=== PATIENT | male | born 1950 | race Caucasian/White ===

== ENCOUNTER 2022-05-27 22:55 | Inpatient (IN) ==
--- NOTE | 2022-05-27 23:20 | Emergency Department Note ---
History of Present Illness General Chief complaint: Vomiting Stated complaint: FEVER/VOMITING/WEAKNESS/LETHARGIC/ALTERED Time Seen by Provider: 05/27/22 22:58 History of Present Illness 72-year-old male presents via EMS reportedly from home, has a history of dementia, reportedly has been ill over the past day. EMS stated that the patient had episodes of vomiting alteration mental status cough. Patient is venkatesh ble to provide any history he is nonverbal. Allergies Allergy/AdvReac Type Severity Reaction Status Date / Time Penicillins Allergy Unknown Verified 05/28/22 00:15 Past Med/Surg History Medical History Dementia Social History Smoking Status: Unknown if ever smoked Feels Safe at Home: Declines to Answer Immunizations: Unable to obtain medical history due to patient's dementia Review of Systems Unobtainable due to cognitive status Physical Exam Vital Signs Vital Signs - 24 hr 05/27/22 23:12 05/28/22 00:11 05/27/22 23:45 Temperature 38.1 C H Temperature Source Rectal Pulse Rate 84 Pulse Rate [Finger] 82 Pulse Rhythm Regular Pulse Rhythm [Finger] Pulse Strength Normal Pulse Strength [Finger] Respiratory Rate 22 19 Respiratory Effort / Characteristics Non-Labored Spontaneous Non-Labored Spontaneous Respiratory Depth Normal Normal Respiratory Pattern Regular Blood Pressure 139/74 Blood Pressure [Left Arm] 87/50 L Blood Pressure Mean 95 Blood Pressure Mean [Left Arm] 62 Pulse Oximetry 94 96 96 Oxygen Delivery Method Nasal Cannula Room Air Nasal Cannula Oxygen Flow Rate 3 3 Sepsis Recent Fever Within 48 Hours Yes Sepsis New/Unexplained Change in Mental Status Yes Sepsis Action Taken by Nursing Physician Notified 05/28/22 00:20 05/28/22 00:31 05/28/22 00:53 Temperature Temperature Source Pulse Rate Pulse Rate [Finger] 79 80 80 Pulse Rhythm Pulse Rhythm [Finger] Regular Pulse Strength Pulse Strength [Finger] Normal Respiratory Rate 16 17 20 Respiratory Effort / Characteristics Non-Labored Spontaneous Respiratory Depth Normal Respiratory Pattern Regular Blood Pressure Blood Pressure [Left Arm] 98/58 L 112/58 L 100/59 L Blood Pressure Mean Blood Pressure Mean [Left Arm] 71 76 72 Pulse Oximetry 97 97 93 Oxygen Delivery Method Room Air Nasal Cannula Nasal Cannula Oxygen Flow Rate 3 3 Sepsis Recent Fever Within 48 Hours Sepsis New/Unexplained Change in Mental Status Sepsis Action Taken by Nursing 05/28/22 01:37 Temperature 37.8 C H Temperature Source Rectal Pulse Rate Pulse Rate [Finger] 86 Pulse Rhythm Pulse Rhythm [Finger] Pulse Strength Pulse Strength [Finger] Respiratory Rate 24 Respiratory Effort / Characteristics Respiratory Depth Respiratory Pattern Blood Pressure Blood Pressure [Left Arm] 108/85 Blood Pressure Mean Blood Pressure Mean [Left Arm] 92 Pulse Oximetry 94 Oxygen Delivery Method Nasal Cannula Oxygen Flow Rate 3 Sepsis Recent Fever Within 48 Hours Sepsis New/Unexplained Change in Mental Status Sepsis Action Taken by Nursing GENERAL: Patient is awake; ill appearing EYES: The conjunctivae are clear. The pupils are round and reactive. EARS, NOSE, MOUTH AND THROAT: The nose is without any evidence of any deformity. Mucous membranes are moist. Tongue is midline. NECK: The neck is nontender and supple. RESPIRATORY: Normal respiratory effort is noted there is no evidence of wheezing rhonchi or rales CARDIOVASCULAR: Regular rate and rhythm noted there no murmurs rubs or gallops normal S1 normal S2. GASTROINTESTINAL: The abdomen is soft. Abdomen is nontender. PELVIS: The Pelvis is stable. No tenderness to palpation is noted. BACK: No midline tenderness or or step-off noted range of motion in flexion extension as well as rotation no signs of muscle spasm noted MUSCULOSKELETAL/EXTREMITIES: There is no evidence of gross deformity full range of motion is noted in the hips and shoulders. SKIN: There is no obvious evidence of any rash. There are no petechiae, pallor or cyanosis noted. Reported right buttocks decub stage 2 per nursing NEUROLOGIC: Patient is awake; nonverbal; does not follow commands Course Reevaluation(s) Reevaluation #1: Patient was evaluated for alteration mental status fever low blood pressure. Patient was given IV fluids, IV Tylenol, patient is COVID-positive, CTs are negative, I suspect that the patient may have sepsis at this time. Time: 01:35 Reevaluation #2: Patient improved after IV fluids Time: 01:35 Consultations Consultation #1: Case was discussed with the [facility]ist Time: :35 Administered Medications Discontinued Medications Acetaminophen (Ofirmev) 1,000 mg in 100 mls @ 400 mls/hr IV NOW STA Stop: 05/27/22 23:52 Last Infusion: 05/28/22 00:53 Dose: 0 mls/hr Documented By: Admin: 05/27/22 23:53 Dose: 400 mls/hr Documented By: MAGGY Sodium Chloride (Nss 1000ml) 1,000 mls @ 999 mls/hr IV .Q1H1M RHINA Stop: 05/28/22 01:15 Last Infusion: 05/28/22 00:52 Dose: 0 mls/hr Documented By: Admin: 05/28/22 00:14 Dose: 999 mls/hr Documented By: MAGGY Critical Care Time Critical Care Time: Yes Total Critical Care Time: 35 I have personally spent greater than 35 minutes of critical care time in the direct management of this patient. This includes bedside care, interpretation of diagnostic studies, and testing, discussion with consultants, patient, and family members, and other required patient management activities. These minutes are in excess of all separately billable procedures. Medical Decision Making Medical Records Attestation: I reviewed the patient's medical records. Home Medications Current Medication List: was personally reviewed by me Laboratory Data Attestation: I reviewed the patient's lab results. Result diagrams: 05/27/22 23:24 05/27/22 23:24 Lab Results 05/27/22 05/27/22 05/27/22 Range/Units 23:24 23:24 23:24 WBC 4.98 (4.8-10.8) K/ul RBC 4.60 L (4.63-6.08) M/uL Hgb 13.7 L (14.0-18.0) g/dl Hct 41.1 (40.1-51.0) % MCV 89.3 (80.0-100.0) fL MCH 29.8 (25.0-34.0) pg MCHC 33.3 (32.0-36.0) g/dL RDW Std Deviation 46.0 (36.4-46.3) fL RDW Coeff of Maurice 14.1 (11.5-14.5) % Plt Count 166 (130-400) K/uL MPV 12.0 (9.4-12.4) fL Immature Gran % (Auto) 0.4 % Neut % (Auto) 78.6 % Lymph % (Auto) 8.8 % Norman % (Auto) 11.8 % Eos % (Auto) 0.0 % Baso % (Auto) 0.4 % Neut # (Auto) 3.91 (1.4-6.5) K/uL Lymph # (Auto) 0.44 L (1.2-3.4) K/uL Norman # (Auto) 0.59 (0.24-0.82) K/uL Eos # (Auto) 0.00 (0-0.50) K/uL Baso # (Auto) 0.02 (0-0.2) K/uL Immature Gran # (Auto) 0.02 (0.00-0.02) K/uL Sodium 135 L (136-145) mmol/L Potassium 4.1 (3.5-5.1) mmol/L Chloride 101 (98-107) mmol/L Carbon Dioxide 26 (21-32) mmol/L Anion Gap 8 (3-11) BUN 25 H (6-23) mg/dl Creatinine 1.17 (0.6-1.4) mg/dl Est Cr Clr Drug Dosing Not Reportable Est GFR ( Amer) 71.3 ml/min Est GFR (Non-Af Amer) 61.5 ml/min BUN/Creatinine Ratio 21.4 H (10-20) Glucose 123 H (70-99(Fasting)) mg/dl Lactate (0.4-2.0) mmol/L Calcium 8.6 (8.5-10.1) mg/dl Magnesium 2.0 (1.7-2.4) mg/dl Total Bilirubin 0.9 (0.2-1.0) mg/dl Direct Bilirubin 0.2 (0-0.2) mg/dl AST 20 (13-39) U/L ALT 14 (7-52) U/L Alkaline Phosphatase 46 (34-104) U/L Troponin I High Sens 6.2 (0-20) pg/ml Total Protein 6.9 (6.0-8.3) gm/dl Albumin 3.8 (3.4-5.0) gm/dl Procalcitonin < 0.05 (0-0.5) ng/ml Urine Color Urine Appearance (Clear) Urine pH (4.5-7.5) Ur Specific [place] (1.000-1.030) Urine Protein (Negative) Urine Glucose (UA) (Negative) Urine Ketones (Negative) Urine Blood (Negative) Urine Nitrite (Negative) Urine Bilirubin (Negative) Urine Urobilinogen (Negative) Ur Leukocyte Esterase (Negative) Urine WBC (Auto) (0-5) /hpf Urine RBC (Auto) (0-4) /hpf U Hyaline Cast (Auto) (0-5) /lpf U Epithel Cells (Auto) (0-5) /lpf Urine Bacteria (Auto) (Negative) Ur Renal Epithelial Cell SARS-CoV-2, RNA, NAAT (NEGATIVE) 05/27/22 05/27/22 05/27/22 Range/Units 23:31 23:35 23:41 WBC (4.8-10.8) K/ul RBC (4.63-6.08) M/uL Hgb (14.0-18.0) g/dl Hct (40.1-51.0) % MCV (80.0-100.0) fL MCH (25.0-34.0) pg MCHC (32.0-36.0) g/dL RDW Std Deviation (36.4-46.3) fL RDW Coeff of Maurice (11.5-14.5) % Plt Count (130-400) K/uL MPV (9.4-12.4) fL Immature Gran % (Auto) % Neut % (Auto) % Lymph % (Auto) % Norman % (Auto) % Eos % (Auto) % Baso % (Auto) % Neut # (Auto) (1.4-6.5) K/uL Lymph # (Auto) (1.2-3.4) K/uL Norman # (Auto) (0.24-0.82) K/uL Eos # (Auto) (0-0.50) K/uL Baso # (Auto) (0-0.2) K/uL Immature Gran # (Auto) (0.00-0.02) K/uL Sodium (136-145) mmol/L Potassium (3.5-5.1) mmol/L Chloride (98-107) mmol/L Carbon Dioxide (21-32) mmol/L Anion Gap (3-11) BUN (6-23) mg/dl Creatinine (0.6-1.4) mg/dl Est Cr Clr Drug Dosing Est GFR ( Amer) ml/min Est GFR (Non-Af Amer) ml/min BUN/Creatinine Ratio (10-20) Glucose (70-99(Fasting)) mg/dl Lactate 2.0 (0.4-2.0) mmol/L Calcium (8.5-10.1) mg/dl Magnesium (1.7-2.4) mg/dl Total Bilirubin (0.2-1.0) mg/dl Direct Bilirubin (0-0.2) mg/dl AST (13-39) U/L ALT (7-52) U/L Alkaline Phosphatase (34-104) U/L Troponin I High Sens (0-20) pg/ml Total Protein (6.0-8.3) gm/dl Albumin (3.4-5.0) gm/dl Procalcitonin (0-0.5) ng/ml Urine Color Dark Yellow Urine Appearance Clear (Clear) Urine pH 5.5 (4.5-7.5) Ur Specific [place] 1.023 (1.000-1.030) Urine Protein Trace H (Negative) Urine Glucose (UA) Negative (Negative) Urine Ketones 1+ H (Negative) Urine Blood 1+ H (Negative) Urine Nitrite Negative (Negative) Urine Bilirubin Negative (Negative) Urine Urobilinogen Negative (Negative) Ur Leukocyte Esterase Negative (Negative) Urine WBC (Auto) 1-5 (0-5) /hpf Urine RBC (Auto) 0-4 (0-4) /hpf U Hyaline Cast (Auto) 1-5 (0-5) /lpf U Epithel Cells (Auto) >30 H (0-5) /lpf Urine Bacteria (Auto) Negative (Negative) Ur Renal Epithelial Cell Not Reportable SARS-CoV-2, RNA, NAAT POSITIVE A* (NEGATIVE) Imaging Data Attestation: I personally reviewed and interpreted this imaging study as follows: My Impression: Chest x-ray interpreted by me poor inspiratory effort is dilation of the small intestine no obvious free air Radiologist's Impression: CT of the brain no intracranial hemorrhage no evidence of acute territorial infarction, CT of the abdomen pelvis states gallstones dilated fluid-filled stomach and large prostate moderate compression fracture deformity of L4 per radiology ECG Data Attestation: I personally reviewed and interpreted this ECG as follows: Additional Comments: EKG interpreted by me normal sinus rhythm rate of 82 left axis deviation occasional PVC no obvious ST segment elevation or depression MDM Narrative Medical decision making differential diagnosis includes sepsis, urinary tract infection, dehydration, pneumonia, COVID; plan is to evaluate for sepsis, observe Impression & Plan Acute alteration in mental status, COVID-19, Hypoxia Discharge Plan Visit Data Chief Complaint: Vomiting Stated Complaint: FEVER/VOMITING/WEAKNESS/LETHARGIC/ALTERED ED Provider: Deepak Tanner Discharge Problem: Acute alteration in mental status, COVID-19, Hypoxia Patient Disposition: Being Evaluated by Hospitalist Forms Stand Alone Forms: [facility] Referrals Referrals: Mitzi Braswell MD [Primary Care Provider] -
[2022-05-27] MEDS ORDERED: ACETAMINOPHEN 1,000 MG/100 ML VIAL IV STA (23:38)
[2022-05-28] LABS: Basophils # (auto) 0.02 K/uL (0-0.2); Basophils % (auto) 0.4 %; Hematocrit (blood only) 41.1 % (40.1-51.0); Hemoglobin 13.7 g/dl (14.0-18.0); Immature Granulocytes # (auto) 0.02 K/uL (0.00-0.02); Immature Granulocytes % (auto) 0.4 %; Lymphocytes # (auto) 0.44 K/uL (1.2-3.4); Lymphocytes % (auto) 8.8 %; Mean Corpuscular Hemoglobin 29.8 pg (25.0-34.0); Mean Corpuscular Hgb Conc 33.3 g/dL (32.0-36.0); Mean Corpuscular Volume 89.3 fL (80.0-100.0); Monocytes # (auto) 0.59 K/uL (0.24-0.82); Monocytes % (auto) 11.8 %; Neutrophils # (auto) 3.91 K/uL (1.4-6.5); Neutrophils % (auto) 78.6 %; Platelet Count 166 K/uL (130-400); RDW Coefficient of Variation 14.1 % (11.5-14.5); White Blood Count 4.98 K/ul (4.8-10.8)
[2022-05-28 00:11] LABS: Appearance Urine Clear (Clear); Bacteria Urine Automated Negative (Negative); Bilirubin Urine Negative (Negative); Blood Urine 1+ (Negative); Color Urine Dark Yellow; Epithelial Cell Urine Auto >30 /lpf (0-5); Glucose Urine UA Negative (Negative); Ketones Urine 1+ (Negative); Leukocyte Esterase Urine Negative (Negative); Nitrite Urine Negative (Negative); Protein Urine Trace (Negative); RBC Urine Automated 0-4 /hpf (0-4); Specific Gravity Urine 1.023 (1.000-1.030); Urobilinogen Urine Negative (Negative); pH Urine 5.5 (4.5-7.5)
[2022-05-28 00:14] LABS: Troponin I High Sensitivity 6.2 pg/ml (0-20)
[2022-05-28 00:15] LABS: Alanine Aminotransferase 14 U/L (7-52); Albumin Level 3.8 gm/dl (3.4-5.0); Alkaline Phosphatase 46 U/L (34-104); Anion Gap 8 (3-11); Aspartate Aminotransferase 20 U/L (13-39); BUN Creatinine Ratio 21.4 (10-20); Bilirubin Direct 0.2 mg/dl (0-0.2); Bilirubin,Total 0.9 mg/dl (0.2-1.0); Blood Urea Nitrogen 25 mg/dl (6-23); Calcium 8.6 mg/dl (8.5-10.1); Carbon Dioxide 26 mmol/L (21-32); Chloride 101 mmol/L (98-107); Est GFR (African American) 71.3 ml/min; Est GFR (Non-African American) 61.5 ml/min; Glucose 123 mg/dl (70-99(Fasting)); Potassium 4.1 mmol/L (3.5-5.1); Sodium 135 mmol/L (136-145); Total Protein 6.9 gm/dl (6.0-8.3)
[2022-05-28] MEDS ORDERED: SODIUM CHLORIDE 0.9% 1000ML 1,000 ML IV SCH (00:15)
[2022-05-28] MEDS ORDERED: KETOROLAC TROMETHAMINE 15 MG/ML VIAL IV ONE (01:53)
[2022-05-28] MEDS ORDERED: SODIUM CHLORIDE 0.9% 500 ML IV SCH (02:00)
--- NOTE | 2022-05-28 04:02 | History and Physical Report ---
DATE OF ADMISSION: 05/27/2022. CHIEF COMPLAINT: Fever, cough, vomiting. HISTORY OF PRESENT ILLNESS: A 72-year-old male with past medical history significant for hyperlipidemia, mixed Alzheimer's and vascular dementia, chronic kidney disease stage III, generalized weakness, history of agitation, he has dementia for the last 18 years, currently speaks only few words and he can eat regular diet and pills he is given in yogurt or applesauce as per lives at his home with his , mostly bedbound, but with walker and assistance, he can walk short distances, comes because of not feeling well. As per the last night, he was feeling weak and in the morning he developed fever, cough, slept for most of the day and poor appetite, and seemed confused, so brought him to the hospital. He had a temperature spike and COVID came back positive and before coming to the hospital, he had an episode of large amount of vomiting. Blood pressure was soft in the ER, given fluids. The patient is mostly nonverbal. All the history got from the , who is in the room. As per the , no diarrhea or constipation. She gives Metamucil to him every day.Could not get any history from the patient. No signs of any pain. thinks he might have some abdominal discomfort because when he bends down, he seems somewhat uncomfortable. ALLERGIES: TO PENICILLINS. PAST MEDICAL HISTORY: As mentioned above. PAST SURGICAL HISTORY: Colonoscopy, appendectomy. MEDICATIONS: As per , he is only on Depakote 250 mg p.o. b.i.d. FAMILY HISTORY: Significant for mother had ovarian cancer, diabetes, father has diabetes, brother has hypercholesterolemia; father has dementia. SOCIAL HISTORY: . Quit smoking in 1972. Alcohol, occasional beer. No drug use. REVIEW OF SYSTEMS: Unobtainable at this time as the patient has severe dementia. PHYSICAL EXAMINATION: GENERAL: The patient is somewhat drowsy, not in acute distress. VITAL SIGNS: Temperature 37.8, pulse 84, respiratory rate 22, blood pressure was 93/52, oxygen 93% on 3 liters. HEENT: Pupils equal, round and reactive to light. Oral mucosa somewhat dry. NECK: No JVD or neck masses. CARDIOVASCULAR: S1 and S2 heard. Regular rate and rhythm. No murmur, no gallop. RESPIRATORY SYSTEM: Normal AP diameter. No accessory muscle use. Mild bibasilar crackles. No wheezing. ABDOMEN: Soft, bowel sounds present, nontender, no distention. CENTRAL NERVOUS SYSTEM: Somewhat drowsy. The patient has severe dementia. EXTREMITIES: No edema, no erythema. LABORATORY DATA: WBC 4.9, hemoglobin 13.7, hematocrit 41.1, platelets 166. Sodium 135, potassium 4.1, chloride 101, bicarbonate 26, BUN 25, creatinine 1.1, serum glucose 123, lactate 2.0, calcium 8.6, magnesium 2, total bilirubin 0.9, direct bilirubin 0.2, AST 20, ALT 14, alkaline phosphatase 46. Troponin I high sensitivity 6.2. Procalcitonin less than 0.05. Urinalysis negative. SARS-CoV-2 rapid test positive. IMAGING DATA: Chest x-ray, poor inspiratory effort. CT of the head, preliminary report, age indeterminate myocardial infarction of the left occipital lobe. No evidence of acute territorial infarction, extensive periventricular white matter disease may reflect combination of a microangiopathic white matter ischemia and diffuse ventricular enlargement appears out of proportion to sulcal atrophy suggesting communicating hydrocephalus. CT abdomen and pelvis, preliminary report, moderate compression fracture deformity of L4 and mild compression fracture deformity of T12 are of uncertain chronicity. EKG: Sinus rhythm with frequent PVCs at a rate of 82, nonspecific ST abnormalities, prolonged QTc. ASSESSMENT AND PLAN: This is a 72-year-old male with vascular dementia who presents with altered mental status, fever, and cough and found to have COVID. 1. Altered mental status, most likely secondary to COVID: The patient is COVID vaccinated and boosted once, requiring oxygen 3 liters, saturating okay. Meets criteria for remdesivir and steroids, his is okay for it. We will start him on remdesivir and IV Decadron. Follow the remdesivir labs. Closely monitor in the hospital. We will also follow the final reports of the CT of the head and CT of the abdomen and pelvis. 2. Hypotension: Blood pressure is soft. Had vomiting at home. received 1lt fluid in the ER. Will give him another 500 mL bolus. We will continue with IV D5 normal saline at 80 mL per hour, closely monitor the hemodynamics. We will also follow the final reports of the CT of the head and CT of the abdomen and pelvis. 3. Severe dementia: Speaks only few words, mostly bedbound. 4. History of agitation: Continue his home Depakote. Monitor for any delirium. 5. Deep venous thrombosis prophylaxis: Lovenox. DISPOSITION: Closely monitor in tele floor. Level 1 full code only if there is chance of recovery as per my discussion with his . Expect to discharge home when stable. Job ID: [id number]
[2022-05-28] MEDS ORDERED: D5W AND NSS 1,000 ML IV SCH (05:13)
[2022-05-28] MEDS ORDERED: POLYETHYLENE (MIRALAX) 17 GM PACK PO PRN (05:13)
[2022-05-28] MEDS ORDERED: ONDANSETRON INJ 2 MG/ML 2 ML VIAL IV PRN (05:13)
[2022-05-28] MEDS ORDERED: NITROGLYCERIN SL 0.4 MG/TAB TAB SL PRN (05:13)
[2022-05-28] MEDS ORDERED: REMDESIVIR 200 MG in SODIUM CHLORIDE 0.9% 210 ML IV STA (05:13)
[2022-05-28] MEDS ORDERED: PROMETHAZINE HCL 12.5 MG in SODIUM CHLORIDE 0.9% 50 ML IV PRN (05:52)
--- NOTE | 2022-05-28 07:21 | CT Scan Report ---
HEAD CT NONCONTRAST CT DOSE: HISTORY: Altered mental status. TECHNIQUE: Multiaxial CT images of the head were performed without the use of intravenous contrast. A utomated exposure control was utilized for this study. A dose lowering technique was utilized adheri ng to the principles of ALARA. Comparison: Head CT 01/18/2022. Findings: The paranasal sinuses and mastoid air cells are clear. The calvarium and skull base are int act. There is no mass, hematoma, midline shift, acute infarct. The ventricles and sulci demonstrate m oderate age-related involutional changes. Encephalomalacia again noted within the bilateral frontal l obes, unchanged. 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 Ventricular prominence remains slightly out of portion to the sulcal atrophy. Periventricular white matter hypodensity is n onspecific and could be due to the advanced microvascular ischemic change. Transependymal CFS flow is considered less likely given the lack of significant change. Impression: 1. No significant change compared to the prior study. No acute intracranial abnormality. 2. Stable ventricular prominence with periventricular white matter hypodensity. This nonspecific and could be due to central volume loss and microvascular ischemic change. Normal pressure hydrocephalus is considered less likely but not entirely excluded. ACT 112: Negative or not required by law. Electronically signed by: Hung Hale M.D. 05/28/2022 7:18 AM
[2022-05-28 07:49] LABS: Basophils # (auto) 0.02 K/uL (0-0.2); Basophils % (auto) 0.5 %; Hematocrit (blood only) 38.4 % (40.1-51.0); Immature Granulocytes # (auto) 0.02 K/uL (0.00-0.02); Immature Granulocytes % (auto) 0.5 %; Lymphocytes # (auto) 0.54 K/uL (1.2-3.4); Lymphocytes % (auto) 12.2 %; Mean Corpuscular Hemoglobin 30.1 pg (25.0-34.0); Mean Corpuscular Hgb Conc 33.9 g/dL (32.0-36.0); Mean Corpuscular Volume 88.9 fL (80.0-100.0); Mean Platelet Volume 11.9 fL (9.4-12.4); Monocytes # (auto) 0.51 K/uL (0.24-0.82); Monocytes % (auto) 11.5 %; Neutrophils # (auto) 3.35 K/uL (1.4-6.5); Neutrophils % (auto) 75.3 %; Platelet Count 141 K/uL (130-400); RDW Coefficient of Variation 14.2 % (11.5-14.5); RDW Standard Deviation 45.9 fL (36.4-46.3); Red Blood Count 4.32 M/uL (4.63-6.08); White Blood Count 4.44 K/ul (4.8-10.8)
--- NOTE | 2022-05-28 07:50 | XRay Report ---
SINGLE VIEW CHEST CLINICAL HISTORY: Sepsis. FINDINGS: An AP, portable, semierect chest radiograph is compared to study dated 01/18/2022. The exami nation is degraded by portable technique and patient rotation. The patient's head obscures the left a pex. The heart is enlarged. There is pulmonary vascular congestion. There is elevation of the right h emidiaphragm with bibasilar scarring/atelectasis. No airspace consolidation typical for pneumonia or large pleural effusion is identified. No pneumothorax is seen. The skeletal structures are osteopenic . The bony thorax is grossly intact. IMPRESSION: Cardiomegaly with pulmonary vascular congestion. ACT 112: Negative or not required by law. Electronically signed by: Aleks Rivers M.D. 05/28/2022 7:48 AM
[2022-05-28 08:12] LABS: Anion Gap 6 (3-11); BUN Creatinine Ratio 20.8 (10-20); Blood Urea Nitrogen 21 mg/dl (6-23); Calcium 8.3 mg/dl (8.5-10.1); Carbon Dioxide 27 mmol/L (21-32); Chloride 104 mmol/L (98-107); Est GFR (African American) 85.1 ml/min; Est GFR (Non-African American) 73.4 ml/min; Glucose 106 mg/dl (70-99(Fasting)); Potassium 4.3 mmol/L (3.5-5.1); Sodium 137 mmol/L (136-145)
--- NOTE | 2022-05-28 08:27 | CT Scan Report ---
CT SCAN OF THE ABDOMEN AND PELVIS WITHOUT IV CONTRAST CLINICAL HISTORY: Vomiting. COMPARISON STUDY: Pelvic radiograph dated 01/18/2022. TECHNIQUE: CT scan of the abdomen and pelvis is performed from the lung bases to the proximal femora. Images are reviewed in the axial, sagittal, and coronal planes. IV contrast was not administered for this examination. Note that the examination was performed in significantly suboptimal fashion withou t oral and IV contrast. There is also motion artifact, as well as streak artifact from the arms which could not be elevated above the abdomen. A dose lowering technique was utilized adhering to the prin ciples of ABDIRAHMAN. CT DOSE: 1585.62 mGy.cm FINDINGS: Lung bases: The heart is enlarged noting trace pericardial effusion. There are trace pleural effusion s with bibasilar consolidation. A calcified granuloma seen at the left lung base. A small hiatal ricky ia is noted. Liver: The unenhanced liver is normal in size, contour, and attenuation. There is no intrahepatic shani iary ductal dilatation. Gallbladder: There are calcified gallstones without CT evidence of acute cholecystitis. Spleen: Normal in size and attenuation. Pancreas: The unenhanced pancreas is grossly unremarkable. Adrenal glands: Unremarkable. Kidneys: The unenhanced kidneys are normal in size and without hydronephrosis. There are no renal mick culi identified. There is no evidence of contour deforming renal mass lesion. Abdominal vasculature: The abdominal aorta is normal in course and caliber noting mild to moderate at herosclerotic calcification. Bowel: The stomach is distended and fluid-filled. The small bowel loops are normal in caliber with no evidence of obstruction. There is rectosigmoid fecal retention and moderate constipation. Fluid is n oted in the right colon. There is mild colonic diverticulosis without CT evidence of acute diverticul itis. The appendix is not visualized. Peritoneum: There is no intraperitoneal free air or abdominal ascites. There is a fat-containing umbi lical hernia. Lymphadenopathy: None. Pelvic viscera: The prostate gland is enlarged and heterogeneous noting median lobe hypertrophy. The bladder is decompressed. The wall appears thickened/trabeculated indicating chronic outlet obstructio n. Bladder calculi are noted. Inflammatory change is seen around the bladder. There is a fat-containi ng left inguinal hernia. Skeletal structures: The skeletal structures are osteopenic. There is an age-indeterminate superior e ndplate compression deformity of L4. There is a mild chronic-appearing superior endplate compression deformity of T12. Moderate lumbosacral spondylosis is observed. No lytic or blastic lesions are seen. IMPRESSION: 1. Significantly suboptimal examination without oral and IV contrast. There is also significant strea k and motion artifact. 2. The stomach is distended and filled with fluid, and the small bowel is normal in caliber. This is of indeterminate significance. Correlate clinically for evidence of gastric outlet obstruction. 3. Cardiomegaly and trace pleural effusions. 4. Dependent consolidation likely represents atelectasis. Correlate clinically for evidence of superi mposed pneumonia/aspiration pneumonitis. 5. Cholelithiasis. 6. The bladder is decompressed and contains bladder calculi. There is pericystic inflammation. Correl ate with clinical findings and urinalysis for evidence of cystitis. 7. Age-indeterminate superior endplate compression deformity of L4. 8. Additional findings as above. ACT 112: Negative or not required by law. Electronically signed by: Aleks Rivers M.D. 05/28/2022 8:24 AM
--- NOTE | 2022-05-28 08:48 | Communication Note ---
Date of Service: May 28, 2022 Qt prolongation on ekg. Will follow repeat ekg. To avoid Qt prolonging drugs. Thanks
[2022-05-28] MEDS: dexAMETHasone 6 MG in SYRINGE 0 ML IV SCH (08:53)
[2022-05-28] MEDS: DIVALPROEX SODIUM SPRINKLE/DEL-REL 125 MG CAP PO SCH ×2 (08:54→21:32)
[2022-05-28] MEDS: ENOXAPARIN INJ 40 MG/0.4 ML SYR SQ SCH (09:30)
--- NOTE | 2022-05-28 11:37 | Communication Note ---
Date of Service: May 28, 2022 Patient seen and examined. Awake, alert but not answering questions or following commands (person reported to be mostly nonverbal per Admitting Dr) Basilar crackles on exam. Currently on room air. RN reported he has been taking his meds/tolerating po with assistance Stop IVF for now Continue other management as detailed in H&P by Dr Bernal this morning
[2022-05-29] MEDS: ACETAMINOPHEN 1,000 MG/100 ML VIAL IV PRN (03:15)
[2022-05-29 06:11] LABS: Hematocrit (blood only) 38.6 % (40.1-51.0); Hemoglobin 13.4 g/dl (14.0-18.0); Mean Corpuscular Hemoglobin 29.7 pg (25.0-34.0); Mean Corpuscular Hgb Conc 34.7 g/dL (32.0-36.0); Mean Corpuscular Volume 85.6 fL (80.0-100.0); Mean Platelet Volume 12.7 fL (9.4-12.4); Platelet Count 146 K/uL (130-400); RDW Coefficient of Variation 13.8 % (11.5-14.5); RDW Standard Deviation 43.1 fL (36.4-46.3); Red Blood Count 4.51 M/uL (4.63-6.08); White Blood Count 5.62 K/ul (4.8-10.8)
[2022-05-29 06:34] LABS: Alanine Aminotransferase 16 U/L (7-52); Albumin Level 3.5 gm/dl (3.4-5.0); Alkaline Phosphatase 39 U/L (34-104); Anion Gap 6 (3-11); Aspartate Aminotransferase 32 U/L (13-39); BUN Creatinine Ratio 22.2 (10-20); Bilirubin Direct 0.1 mg/dl (0-0.2); Bilirubin,Total 0.7 mg/dl (0.2-1.0); Blood Urea Nitrogen 20 mg/dl (6-23); Calcium 8.4 mg/dl (8.5-10.1); Carbon Dioxide 28 mmol/L (21-32); Chloride 103 mmol/L (98-107); Est GFR (African American) 97.9 ml/min; Est GFR (Non-African American) 84.4 ml/min; Glucose 94 mg/dl (70-99(Fasting)); Potassium 3.7 mmol/L (3.5-5.1); Sodium 137 mmol/L (136-145); Total Protein 6.4 gm/dl (6.0-8.3)
[2022-05-29] MEDS: DIVALPROEX SODIUM SPRINKLE/DEL-REL 125 MG CAP PO SCH ×2 (07:53→21:28)
[2022-05-29] MEDS: dexAMETHasone 6 MG in SYRINGE 0 ML IV SCH (07:53)
--- NOTE | 2022-05-29 10:52 | Hospitalist Progress Note ---
Date of Service May 29, 2022 Assessment & Plan (1) Acute alteration in mental status: (2) COVID-19: (3) Hypoxia: Plan Patient was brought in for AMS, weakness, fever and cough. At baseline, he is mostly bedbound, uses walker/assistance for short distances sometime, mostly nonverbal. Was noted to have COVID 19 infection Possible metabolic encephalopathy due to COVID 19 infection COVID [address] abd/P noted trace pleural effusion with bibasilar consolidation, age inde terminate superior endplate compression deformity of L4, cholelithiasis Was reported to be hypoxic in ER, requiring oxygen Currently on dexamethasone and remdesivir for COVID 19 pneumonia Patient is currently on room air with sats at 93%. He keeps taking oxygen off per RN. Will keep on room air for now with sats>90% Continue to assist with oral intake Continue home divalproex and sertraline DVT ppx - lovenox Admission and Anticipated Discharge Date Admission Date: May 28, 2022 Subjective Patient seen and examined Patient is awake, alert, does not answer questions or follow commands RN reported elevated BP measured earlier were erroneous as he was fighting them during measurement He has been taking his meds/food well with assistance Currently on room air Review of Systems Review of Systems: Unobtainable due to cognitive status Physical Exam Constitutional: + well hydrated; no acute distress Elderly man watching TV Eyes: PERRL, conjunctivae normal, anicteric sclerae Respiratory: normal respiratory effort; no respiratory distress Auscultation: + diminished lung sounds Cardiovascular: Rate/Rhythm: regular rate and regular rhythm S1 S2 Gastrointestinal (Abdomen): normal bowel sounds, soft, nontender, no hepatosplenomegaly Musculoskeletal: No pedal edema Neurologic: PERRL. Moves limbs Limited exam as patient does not follow commands Results & Data Results & Data ([facility]) Vital Signs (Past 12 Hours) Vital Signs Temp Pulse Resp BP Pulse Ox Pulse Ox O2 Del Method 05/29/22 10:44 Room Air 05/29/22 10:44 91 05/29/22 08:10 143/89 H 05/29/22 07:23 196/153 H 05/29/22 07:16 37.4 C 78 22 209/150 H 96 Room Air 05/29/22 05:13 91 05/29/22 04:59 37.6 C H 80 18 136/78 91 Nasal Cannula 05/29/22 03:45 38.1 C H 05/29/22 02:52 38.1 C H 80 18 158/86 H 90 Room Air O2 Del Method O2 Flow Rate 05/29/22 10:44 05/29/22 10:44 Room Air 05/29/22 08:10 05/29/22 07:23 05/29/22 07:16 05/29/22 05:13 Room Air 05/29/22 04:59 1 05/29/22 03:45 05/29/22 02:52 Laboratory Results Abnormal lab results 05/29/22 05/29/22 Range/Units 05:22 05:22 RBC 4.51 L (4.63-6.08) M/uL Hgb 13.4 L (14.0-18.0) g/dl Hct 38.6 L (40.1-51.0) % MPV 12.7 H (9.4-12.4) fL BUN/Creatinine Ratio 22.2 H (10-20) Calcium 8.4 L (8.5-10.1) mg/dl
[2022-05-29] MEDS: ENOXAPARIN INJ 40 MG/0.4 ML SYR SQ SCH (11:34)
[2022-05-29] MEDS: REMDESIVIR 100 MG in SODIUM CHLORIDE 0.9% 230 ML IV SCH (11:34)
--- NOTE | 2022-05-29 22:47 | Electrocardiogram Report ---
Test Reason : Blood Pressure : / mmHG Vent. Rate : 082 BPM Atrial Rate : 082 BPM P-R Int : 148 ms QRS Dur : 090 ms QT Int : 400 ms P-R-T Axes : 059 -17 039 degrees QTc Int : 468 ms Poor data quality, interpretation may be adversely affected Sinus rhythm with frequent Premature ventricular complexes Nonspecific T wave abnormality Abnormal ECG When compared with ECG of 14-JUL-2012 12:05, Premature ventricular complexes are now Present Criteria for Inferior infarct are no longer Present Nonspecific T wave abnormality now evident in Lateral leads QT has lengthened Confirmed by Tee Rosado ([id number]) on 05/29/2022 10:47:08 PM Referred By: REFERRED SELF Confirmed By:Tee Rosado
--- NOTE | 2022-05-30 06:15 | Electrocardiogram Report ---
Test Reason : Blood Pressure : / mmHG Vent. Rate : 088 BPM Atrial Rate : 088 BPM P-R Int : 150 ms QRS Dur : 088 ms QT Int : 458 ms P-R-T Axes : 044 -20 036 degrees QTc Int : 554 ms Poor data quality, interpretation may be adversely affected Normal sinus rhythm with occasional Premature atrial complexes Moderate voltage criteria for LVH, may be normal variant Nonspecific ST and T wave abnormality Abnormal ECG When compared with ECG of 27-MAY-2022 23:23, Premature ventricular complexes are no longer Present Nonspecific T wave abnormality now evident in Anterior leads Confirmed by Tee Rosado ([id number]) on 05/30/2022 6:15:27 AM Referred By: REFERRED SELF Confirmed By:Tee Rosado
[2022-05-30 06:16] LABS: Hematocrit (blood only) 41.9 % (40.1-51.0); Hemoglobin 14.1 g/dl (14.0-18.0); Mean Corpuscular Hemoglobin 29.6 pg (25.0-34.0); Mean Corpuscular Hgb Conc 33.7 g/dL (32.0-36.0); Mean Corpuscular Volume 87.8 fL (80.0-100.0); Mean Platelet Volume 12.9 fL (9.4-12.4); Platelet Count 141 K/uL (130-400); RDW Coefficient of Variation 13.6 % (11.5-14.5); RDW Standard Deviation 44.1 fL (36.4-46.3); Red Blood Count 4.77 M/uL (4.63-6.08); White Blood Count 5.49 K/ul (4.8-10.8)
[2022-05-30 06:40] LABS: Alanine Aminotransferase 16 U/L (7-52); Anion Gap 6 (3-11); Aspartate Aminotransferase 31 U/L (13-39); BUN Creatinine Ratio 35.4 (10-20); Blood Urea Nitrogen 28 mg/dl (6-23); Calcium 8.6 mg/dl (8.5-10.1); Carbon Dioxide 27 mmol/L (21-32); Chloride 105 mmol/L (98-107); Est GFR (African American) 103.2 ml/min; Est GFR (Non-African American) 89.1 ml/min; Glucose 101 mg/dl (70-99(Fasting)); Potassium 3.9 mmol/L (3.5-5.1); Sodium 138 mmol/L (136-145)
[2022-05-30] MEDS: DIVALPROEX SODIUM SPRINKLE/DEL-REL 125 MG CAP PO SCH ×2 (07:48→19:54)
[2022-05-30] MEDS: ENOXAPARIN INJ 40 MG/0.4 ML SYR SQ SCH (07:48)
[2022-05-30] MEDS: dexAMETHasone 6 MG in SYRINGE 0 ML IV SCH (07:48)
--- NOTE | 2022-05-30 11:08 | Hospitalist Progress Note ---
Date of Service May 30, 2022 Assessment & Plan (1) Acute alteration in mental status: (2) COVID-19: (3) Hypoxia: Plan Patient was brought in for AMS, weakness, fever and cough. At baseline, he is mostly bedbound, uses walker/assistance for short distances sometime, mostly nonverbal. Was noted to have COVID 19 infection Possible metabolic encephalopathy due to COVID 19 infection COVID [address] abd/P noted trace pleural effusion with bibasilar consolidation, age inde terminate superior endplate compression deformity of L4, cholelithiasis Was reported to be hypoxic in ER, required oxygen Currently on dexamethasone and remdesivir for COVID 19 pneumonia Currently on room air Continue to assist with oral intake Continue home divalproex and sertraline Called and updated her If patient continues to improve, will plan for possible dc tomorrow DC best DVT ppx - lovenox Admission and Anticipated Discharge Date Admission Date: May 28, 2022 Subjective Patient seen and examined Patient is awake, alert RN reported he was more interactive today and said a few words Currently on room air Physical Exam Constitutional: + well hydrated; no acute distress Eyes: PERRL, conjunctivae normal, anicteric sclerae Respiratory: normal respiratory effort; no respiratory distress Auscultation: + diminished lung sounds Cardiovascular: Rate/Rhythm: regular rate and regular rhythm S1 S2 Gastrointestinal (Abdomen): normal bowel sounds, soft, nontender, no hepatospl enomegaly Musculoskeletal: No pedal edema Neurologic: PERRL, EOMI Limited exam due to patient being mostly nonverbal and doesn't follow commands Awake, alert and tracks Genitourinary: Best in situ Results & Data Results & Data ([facility]) Vital Signs (Past 12 Hours) Vital Signs Temp Pulse Pulse Resp BP Pulse Ox O2 Del Method 05/30/22 09:30 Room Air 05/30/22 09:30 60 05/30/22 07:47 66 18 113/76 90 Room Air 05/30/22 07:25 60 05/30/22 03:00 36.5 C 65 18 137/82 92 Room Air 05/29/22 23:11 36.8 C 71 18 149/88 H 93 Room Air Laboratory Results Abnormal lab results 05/30/22 05/30/22 Range/Units 05:11 05:11 MPV 12.9 H (9.4-12.4) fL BUN 28 H (6-23) mg/dl BUN/Creatinine Ratio 35.4 H (10-20) Glucose 101 H (70-99(Fasting)) mg/dl
[2022-05-30] MEDS: REMDESIVIR 100 MG in SODIUM CHLORIDE 0.9% 230 ML IV SCH (12:01)
[2022-05-30] MEDS: ACETAMINOPHEN 1,000 MG/100 ML VIAL IV PRN (19:38)
[2022-05-31 08:17] LABS: Alanine Aminotransferase 25 U/L (7-52); Anion Gap 6 (3-11); Aspartate Aminotransferase 33 U/L (13-39); BUN Creatinine Ratio 34.5 (10-20); Blood Urea Nitrogen 30 mg/dl (6-23); Calcium 8.5 mg/dl (8.5-10.1); Carbon Dioxide 27 mmol/L (21-32); Chloride 106 mmol/L (98-107); Est GFR (African American) 99.2 ml/min; Est GFR (Non-African American) 85.6 ml/min; Glucose 87 mg/dl (70-99(Fasting)); Potassium 4.2 mmol/L (3.5-5.1); Sodium 139 mmol/L (136-145)
[2022-05-31 09:21] LABS: Hematocrit (blood only) 41.4 % (40.1-51.0); Hemoglobin 13.9 g/dl (14.0-18.0); Mean Corpuscular Hemoglobin 29.4 pg (25.0-34.0); Mean Corpuscular Hgb Conc 33.6 g/dL (32.0-36.0); Mean Corpuscular Volume 87.7 fL (80.0-100.0); Platelet Count 184 K/uL (130-400); RDW Coefficient of Variation 13.4 % (11.5-14.5); RDW Standard Deviation 43.1 fL (36.4-46.3); Red Blood Count 4.72 M/uL (4.63-6.08); White Blood Count 6.36 K/ul (4.8-10.8)
[2022-05-31] MEDS: ENOXAPARIN INJ 40 MG/0.4 ML SYR SQ SCH (10:06)
[2022-05-31] MEDS: dexAMETHasone 6 MG in SYRINGE 0 ML IV SCH (10:06)
[2022-05-31] MEDS: DIVALPROEX SODIUM SPRINKLE/DEL-REL 125 MG CAP PO SCH (10:06)
[2022-05-31] MEDS: REMDESIVIR 100 MG in SODIUM CHLORIDE 0.9% 230 ML IV SCH (11:57)
--- NOTE | 2022-05-31 12:45 | Discharge Summary ---
Discharge Summary Date of Service May 31, 2022 Notes For Next Care Provider Continue management of chronic medical problems Medication Changes From Visit N/A Admission HPI Per Admitting Provider A 72-year-old male with past medical history significant for hyperlipidemia, mixed Alzheimer's and vascular dementia, chronic kidney disease stage III, generalized weakness, history of agitation, he has dementia for the last 18 years, currently speaks only few words and he can eat regular diet and pills he is given in yogurt or applesauce as per lives at his home with his , mostly bedbound, but with walker and assistance, he can walk short distances, comes because of not feeling well. As per the last night, he was feeling weak and in the morning he developed fever, cough, slept for most of the day and poor appetite, and seemed confused, so brought him to the hospital. He had a temperature spike and COVID came back positive and before coming to the hospital, he had an episode of large amount of vomiting. Blood pressure was soft in the ER, given fluids. The patient is mostly nonverbal. All the history got from the , who is in the room. As per the , no diarrhea or constipation. She gives Metamucil to him every day.Could not get any history from the patient. No signs of any pain. thinks he might have some abdom inal discomfort because when he bends down, he seems somewhat uncomfortable. Admission Exam Per Admitting Provider GENERAL: The patient is somewhat drowsy, not in acute distress. VITAL SIGNS: Temperature 37.8, pulse 84, respiratory rate 22, blood pressure was 93/52, oxygen 93% on 3 liters. HEENT: Pupils equal, round and reactive to light. Oral mucosa somewhat dry. NECK: No JVD or neck masses. CARDIOVASCULAR: S1 and S2 heard. Regular rate and rhythm. No murmur, no gallop. RESPIRATORY SYSTEM: Normal AP diameter. No accessory muscle use. Mild bibasilar crackles. No wheezing. ABDOMEN: Soft, bowel sounds present, nontender, no distention. CENTRAL NERVOUS SYSTEM: Somewhat drowsy. The patient has severe dementia. EXTREMITIES: No edema, no erythema. Principal Dx & Hospital Course #1 = Principal Diagnosis (1) Acute alteration in mental status: (2) COVID-19: (3) Hypoxia: Plan Patient was brought in for AMS, weakness, fever and cough. At baseline, he is mostly bedbound, uses walker/assistance for short distances sometime, mostly nonverbal. Was noted to have COVID 19 infection Possible metabolic encephalopathy due to COVID 19 infection COVID [address] abd/P noted trace pleural effusion with bibasilar consolidation, age indeterminate superior endplate compression deformity of L4, cholelithiasis Was hypoxic in ER and required oxygen Was treated with dexamethasone and remdesivir for COVID 19 pneumonia Patient's symptoms improved Currently on room air and back to baseline mental status Continue home divalproex and sertraline Called and updated her She reported they have assistance/services at home Discharge Exam Constitutional + well hydrated; no acute distress Eyes PERRL, conjunctivae normal, anicteric sclerae Respiratory normal respiratory effort; no respiratory distress Auscultation: + diminished lung sounds Cardiovascular Rate/Rhythm: regular rate and regular rhythm S1 S2 Gastrointestinal (Abdomen) normal bowel sounds, soft, nontender, no hepatosplenomegaly Musculoskeletal No pedal edema Neurologic PERRL, EOMI Patient able to answer "yes" or 'no' to some questions today Does not follow commands Psychiatric Difficult to assess Updated Medication List Medication Instructions Recorded Confirmed Type divalproex 125 mg capsule,delayed 250 mg PO [facility]HS 05/28/22 05/28/22 History release sprinkle sertraline 50 mg tablet 50 mg PO DAILY 05/28/22 05/28/22 History Hospital Stay Data Consultations 05/28/22 01:32 ED Decision to Admit Stat Diagnostic Imagining Performed 05/27/22 23:16 CT head/brain wo con Stat The paranasal sinuses and mastoid air cells are clear. The calvarium and skull base are intact. There is no mass, hematoma, midline shift, acute infarct. The ventricles and sulci demonstrate moderate age-related involutional changes. Encephalomalacia again noted within the bilateral frontal lobes, unchanged. 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 Ventricular prominence remains slightly out of portion to the sulcal atrophy. Periventricular white matter hypodensity is nonspecific and could be due to the advanced microvascular ischemic change. Transependymal CFS flow is considered less likely given the lack of significant change. Impression: 1. No significant change compared to the prior study. No acute intracranial abnormality. 2. Stable ventricular prominence with periventricular white matter hypodensity. This nonspecific and could be due to central volume loss and microvascular ischemic change. Normal pressure hydrocephalus is considered less likely but not entirely excluded. 05/27/22 23:21 CT abd pelvis wo con Stat 1. Significantly suboptimal examination without oral and IV contrast. There is also significant streak and motion artifact. 2. The stomach is distended and filled with fluid, and the small bowel is normal in caliber. This is of indeterminate significance. Correlate clinically for evidence of gastric outlet obstruction. 3. Cardiomegaly and trace pleural effusions. 4. Dependent consolidation likely represents atelectasis. Correlate clinically for evidence of superimposed pneumonia/aspiration pneumonitis. 5. Cholelithiasis. 6. The bladder is decompressed and contains bladder calculi. There is pericystic inflammation. Correlate with clinical findings and urinalysis for evidence of cystitis. 7. Age-indeterminate superior endplate compression deformity of L4. 8. Additional findings as above. Pending Results Patient Have Any Pending Studies at Discharge: No Discharge Instructions Given to Patient (Per Discharging Provider) Mr Finley You were brought into the hospital due to fever, cough and weakness. You were evaluated and found to have COVID 19 pneumonia. You were treated and your symptoms improved.You are being discharged home. Please ensure follow up with your Primary Doctor. Total Time Total Time Spent Total Time Spent (In Minutes): 50 Total Time Includes: Examination of the Patient, Discharge Planning, Medication Reconciliation and Other
== END 2022-05-31 14:20 | disposition home health service (06) | DRG 177 ==
LOC: ED 22:55 → EDINP 05-28 02:43 → 2S 05-28 05:02